=== PATIENT | female | born 1950 | race Caucasian/White ===

== ENCOUNTER 2019-12-16 11:28 | Emergency (ER) | payer OTHER, MEDICARE ==
[~2019-12-16] VITALS: Ht 162.6 cm; Wt 60.0 kg
[2019-12-16 11:33] VITALS: BP 136/78
== END 2019-12-16 13:26 | disposition home or self-care (01) ==
LOC: ER 11:29
DX: S13.4XXA Sprain of ligaments of cervical spine, initial encounter (principal); V43.62XA Car passenger injured in collision with other type car in traffic accident, initial encounter; Y93.89 Activity, other specified; Y92.488 Other paved roadways as the place of occurrence of the external cause; Y99.8 Other external cause status
CPT/HCPCS: 99282